=== PATIENT | male | born 1975 | race Caucasian/White ===

== ENCOUNTER 2020-03-15 17:17 | Emergency (ER) | payer SELFPAY ==
[~2020-03-15] VITALS: Ht 180.3 cm; Wt 127.2 kg
--- NOTE | 2020-03-15 17:17 | NUR ---
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 ALL BELONGINGS IN BAGS X3 (2 PT BELONGINGS BAGS & 1 BACKPACK) PLACED IN RM1 BIN IN LOCKER.
[2020-03-15 17:53] LABS: BASOPHILS # (AUTO) 0.05 x10^3/uL (0-0.1); BASOPHILS % (AUTO) 1 % (0-1); EOSINOPHILS # (AUTO) 0.11 x10^3/uL (0-0.4); EOSINOPHILS % (AUTO) 1 % (1-7); LYMPHOCYTES # (AUTO) 1.87 x10^3/uL (1-3.4); LYMPHOCYTES % (AUTO) 23 % (22-44); MD NO; MEAN CORPUSCULAR HEMOGLOBIN 31.2 pg (27.5-34.5); MEAN CORPUSCULAR HGB CONC 33.8 g/dL (33.2-36.2); MEAN CORPUSCULAR VOLUME 92.2 fL (81-97); MEAN PLATELET VOLUME 7.7 fL (7.4-10.4); MONOCYTES # (AUTO) 0.66 x10^3/uL (0.2-0.8); MONOCYTES % (AUTO) 8 % (2-9); NEUTROPHILS % (AUTO) 66 % (42-75); PLATELET COUNT 255 x10^3/uL (130-400); RED BLOOD COUNT 5.11 x10^6/uL (4.38-5.82); RED CELL DISTRIBUTION WIDTH 13.4 % (9.4-14.8)
[2020-03-15 18:02] LABS: ALANINE AMINOTRANSFERASE 92 U/L (12-78); ALBUMIN 3.3 g/dL (3.4-5.0); ANION GAP 9 mmol/L (5-15); CALCIUM 8.1 mg/dL (8.5-10.1); CHLORIDE 109 mmol/L (98-107)
[2020-03-15 18:05] LABS: SALICYLATE LEVEL < 1.7 mg/dL (2.8-20.0)
[2020-03-15 18:13] LABS: ALKALINE PHOSPHATASE 89 U/L (45-117); BILIRUBIN,TOTAL 0.6 mg/dL (0.2-1.0); CREATININE 0.98 mg/dL (0.7-1.3)
[2020-03-15 18:14] LABS: AMPHETAMINE SCREEN, URINE Negative (Negative); BARBITURATE SCREEN, URINE Negative (Negative); BENZODIAZEPINE SCREEN, URINE Negative (Negative); CANNABINOID SCREEN, URINE Negative (Negative); COCAINE SCREEN, URINE Negative (Negative); METHADONE SCREEN, URINE Negative (Negative); OPIATE SCREEN, URINE Negative (Negative)
--- NOTE | 2020-03-15 18:29 | NUR ---
PT RESTING IN BED WITH EYES CLOSED. NO STATED NEEDS AT THIS TIME.
--- NOTE | 2020-03-15 18:50 | NUR ---
REPORT FROM RADHA ASSUMED CARE OF PT
--- NOTE | 2020-03-15 19:14 | NUR ---
SITTER AT DOORWAY ROOM SECURE
--- NOTE | 2020-03-15 19:57 | NUR ---
Patient is resting comfortably in bed. Vital Signs within normal limits.
--- NOTE | 2020-03-15 20:28 | NUR ---
BREATH ETOH 0.207 AT THIS TIME
--- NOTE | 2020-03-15 21:22 | NUR ---
Patient is resting comfortably in bed. Vital Signs within normal limits.
--- NOTE | 2020-03-15 23:18 | NUR ---
PT UP TO BR AT THIS TIME IN NAD
--- NOTE | 2020-03-16 00:50 | NUR ---
PT AWAKE A AND O, TELE PSYCH CALLED
--- NOTE | 2020-03-16 01:14 | NUR ---
Report received from MILAGROS Sands. This RN to assume care.
--- NOTE | 2020-03-16 02:31 | NUR ---
Patient sleeping in rney. Respirations even and unlabored. Awaiting telepsych at this time. Room secured, belongings in locked cabinet, sitter outside.
--- NOTE | 2020-03-16 03:55 | NUR ---
Patient sleeping in rney. Respirations even and unlabored. Room secured, belongings in locked cabinet, sitter outside.
--- NOTE | 2020-03-16 04:40 | NUR ---
Patient sleeping in rney. Respirations even and unlabored. Room secured, belongings in locked cabinet, sitter outside.
--- NOTE | 2020-03-16 05:29 | NUR ---
Patient spoke with telepsych earlier in the night; patient to be placed on a hold.
--- NOTE | 2020-03-16 05:29 | NUR ---
Meal tray ordered for breakfast and lunch.
--- NOTE | 2020-03-16 05:37 | NUR ---
Patient transferred to hospital bed.
--- NOTE | 2020-03-16 06:07 | NUR ---
Patient resting in hospital bed with no complaints. Respirations even and unlabored. Room secured, belongings in locked cabinet. Sitter outside.
--- NOTE | 2020-03-16 06:43 | NUR ---
RECEIVED REPORT FROM KAEL RN, PLAN OF CARE DISCUSSED
--- NOTE | 2020-03-16 06:44 | NUR ---
Report given to MILAGROS Ramsey. Care transferred.
--- NOTE | 2020-03-16 07:21 | NUR ---
PT AWAKE, STATES HE FEELS BETTER THAT HE IS SOBER. REQUESTING AM CARE. ORDERED MEAL. EXPLAINED PLAN OF CARE, ROOM SECURED. SITTER AT DOOR
[2020-03-16 07:22] VITALS: BP 135/80
--- NOTE | 2020-03-16 09:00 | NUR ---
PT UP TO SHOWER AND AM CARE, TOOTHBRUSH AND PASTE GIVEN, LINEN CHANGED. PT VERBALIZED NO OTHER NEEDS, SITTER AT DOOR, ROOM REMAINS SECURE
--- NOTE | 2020-03-16 09:51 | NUR ---
PT SLEEPING, RESP EVEN AND UNLABORED. SITTER AT DOOR, ROOM REMAINS SECURED
--- NOTE | 2020-03-16 10:57 | NUR ---
ORDERED MEAL. PT SLEEPING RESP EVEN AND UNLABORED. SITTER AT BS, ROOM REMAINS SECURED
--- NOTE | 2020-03-16 11:58 | NUR ---
PT WATCHING TV, ROOM REMAINS SECURED. SITTER AT DOOR
--- NOTE | 2020-03-16 12:27 | NUR ---
TASK RN, FIRST CONTACT WITH PT. Provided pt lunch tray. Pt sits up on hospital bed to eat. Pt appreciaitve. Room remains secured for SI/HI. Sitter in direct line of sight for observaiton. No other needs expressed at this time. No acute distress noticed at this time.
--- NOTE | 2020-03-16 13:20 | NUR ---
BREAK RN NOTE: PT SLEEPING ON HOSPITAL BED, RESPS EVEN AND UNLABORED. ROOM SECURE. SITTER MONITORING FROM HALLWAY FOR SAFETY.
--- NOTE | 2020-03-16 13:30 | NUR ---
REPORT RECEIVED FROM RAY LINARES.
--- NOTE | 2020-03-16 13:45 | NUR ---
ANASTASIYA BASSETT AT BEDSIDE.
--- NOTE | 2020-03-16 13:52 | NUR ---
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
--- NOTE | 2020-03-16 14:15 | NUR ---
2 WHITE BELONGINGS BAGS AND 1 [place]NN DUFFLE BAG RETURNED TO PT.
--- NOTE | 2020-03-16 14:32 | NUR ---
PT VERBALIZED UNDERSTANDING OF DC INSTRUCTIONS, PROVIDED TAXI VOUCHER TO [facility]. PT AMBULATED TO DC DESK W/ A STEADY GAIT.
== END 2020-03-16 14:41 | disposition home or self-care (01) ==
LOC: ED 03-16 00:48
DX: R45.851 Suicidal ideations (principal); F10.220 Alcohol dependence with intoxication, uncomplicated; F32.9 Major depressive disorder, single episode, unspecified; F17.200 Nicotine dependence, unspecified, uncomplicated; Y90.0 Blood alcohol level of less than 20 mg/100 ml
CPT/HCPCS: 36415; 80053; 80307; 84443; 85025; 99284

== ENCOUNTER 2020-04-27 15:10 | Emergency (ER) | payer BC, MEDICAID ==
[~2020-04-27] VITALS: Ht 180.3 cm; Wt 116.2 kg
[2020-04-27 15:15] VITALS: BP 152/91
--- NOTE | 2020-04-27 15:29 | NUR ---
Assumed care of patient. C/O right sided dental pain. NAD. Will continue to monitor.
[2020-04-27 16:04] LABS: BASOPHILS # (AUTO) 0.09 x10^3/uL (0-0.1); BASOPHILS % (AUTO) 1 % (0-1); EOSINOPHILS # (AUTO) 0.04 x10^3/uL (0-0.4); EOSINOPHILS % (AUTO) 0 % (1-7); LYMPHOCYTES # (AUTO) 1.92 x10^3/uL (1-3.4); LYMPHOCYTES % (AUTO) 18 % (22-44); MD NO; MEAN CORPUSCULAR HEMOGLOBIN 31.1 pg (27.5-34.5); MEAN CORPUSCULAR HGB CONC 34.3 g/dL (33.2-36.2); MEAN CORPUSCULAR VOLUME 90.5 fL (81-97); MONOCYTES # (AUTO) 0.46 x10^3/uL (0.2-0.8); MONOCYTES % (AUTO) 4 % (2-9); NEUTROPHILS # (AUTO) 8.15 x10^3/uL (1.8-6.8); NEUTROPHILS % (AUTO) 77 % (42-75); PLATELET COUNT 290 x10^3/uL (130-400); RED BLOOD COUNT 5.52 x10^6/uL (4.38-5.82); RED CELL DISTRIBUTION WIDTH 12.3 % (9.4-14.8)
[2020-04-27 16:16] LABS: ALANINE AMINOTRANSFERASE 75 U/L (12-78); ALBUMIN 3.8 g/dL (3.4-5.0); ANION GAP 6 mmol/L (5-15); CALCIUM 8.8 mg/dL (8.5-10.1); CHLORIDE 112 mmol/L (98-107); CREATININE 1.04 mg/dL (0.7-1.3)
[2020-04-27 16:18] LABS: ALKALINE PHOSPHATASE 53 U/L (45-117); BILIRUBIN,TOTAL 0.8 mg/dL (0.2-1.0); TOTAL PROTEIN 6.9 g/dL (6.4-8.2)
[2020-04-27] MEDS ORDERED: OXYcodone 5 MG/5 ML ORAL.SOL UDC PO STA (16:36)
[2020-04-27] MEDS ORDERED: OXYcodone IR 5MG TABLET ONE (16:45)
--- NOTE | 2020-04-27 16:50 | NUR ---
Medicated per eMAR.
--- NOTE | 2020-04-27 17:08 | NUR ---
Patient/Caregiver given discharge instructions and they have confirmed that they understand the instructions. Patient ambulatory with steady gait.
== END 2020-04-27 17:09 | disposition home or self-care (01) ==
LOC: ED 16:28
DX: K08.89 Other specified disorders of teeth and supporting structures (principal); R00.0 Tachycardia, unspecified; F17.210 Nicotine dependence, cigarettes, uncomplicated
CPT/HCPCS: 36415; 80053; 85025; 93005; 99284; 99406

== ENCOUNTER 2020-05-20 00:28 | Emergency (ER) | payer MEDICAID ==
[~2020-05-20] VITALS: Ht 180.3 cm; Wt 125.0 kg
[2020-05-20 00:32] VITALS: BP 114/79
--- NOTE | 2020-05-20 00:46 | NUR ---
PATTY GARRIDO FROM [facility] FOR ETOH ADMITS TO DRINKING OVER 1PT VODKA, SLURRED SPEACH, UNSTEADY GATE. NO TRAUMA, PT AGGITATED, SLIGHTLY COMBATIVE. VSS
[2020-05-20 01:01] LABS: BASOPHILS # (AUTO) 0.12 x10^3/uL (0-0.1); BASOPHILS % (AUTO) 2 % (0-1); EOSINOPHILS # (AUTO) 0.06 x10^3/uL (0-0.4); EOSINOPHILS % (AUTO) 1 % (1-7); LYMPHOCYTES # (AUTO) 2.75 x10^3/uL (1-3.4); LYMPHOCYTES % (AUTO) 32 % (22-44); MD NO; MEAN CORPUSCULAR HEMOGLOBIN 29.9 pg (27.5-34.5); MEAN CORPUSCULAR HGB CONC 32.6 g/dL (33.2-36.2); MEAN CORPUSCULAR VOLUME 91.8 fL (81-97); MEAN PLATELET VOLUME 7.9 fL (7.4-10.4); MONOCYTES % (AUTO) 7 % (2-9); NEUTROPHILS # (AUTO) 4.95 x10^3/uL (1.8-6.8); NEUTROPHILS % (AUTO) 58 % (42-75); PLATELET COUNT 337 x10^3/uL (130-400); RED BLOOD COUNT 5.23 x10^6/uL (4.38-5.82); RED CELL DISTRIBUTION WIDTH 12.3 % (9.4-14.8)
--- NOTE | 2020-05-20 01:05 | NUR ---
LABS DRAWN AND SENT. PT SLEEPING, RAILS UP, ROOM SECURED.
[2020-05-20 01:13] LABS: ALANINE AMINOTRANSFERASE 183 U/L (12-78); ALBUMIN 3.4 g/dL (3.4-5.0); ANION GAP 7 mmol/L (5-15); CALCIUM 8.4 mg/dL (8.5-10.1); CHLORIDE 111 mmol/L (98-107); CREATININE 0.89 mg/dL (0.7-1.3)
[2020-05-20 01:21] LABS: ALKALINE PHOSPHATASE 67 U/L (45-117); BILIRUBIN,TOTAL 0.4 mg/dL (0.2-1.0); TOTAL PROTEIN 6.9 g/dL (6.4-8.2)
[2020-05-20 01:27] LABS: SALICYLATE LEVEL < 1.7 mg/dL (2.8-20.0)
--- NOTE | 2020-05-20 02:49 | NUR ---
PT PROVIDED URINE SAMPLE, SENT TO LAB. UNSTEADY GAIT, IS COOPERATIVE AT THIS TIME. WILL CONTINUE TO MONITOR.
[2020-05-20 03:06] LABS: AMPHETAMINE SCREEN, URINE Negative (Negative); BARBITURATE SCREEN, URINE Negative (Negative); BENZODIAZEPINE SCREEN, URINE Negative (Negative); CANNABINOID SCREEN, URINE Negative (Negative); COCAINE SCREEN, URINE Negative (Negative); METHADONE SCREEN, URINE Negative (Negative); OPIATE SCREEN, URINE Negative (Negative)
--- NOTE | 2020-05-20 03:57 | NUR ---
PT SLEEPING, RR EQUAL AND UNLABORED. SIDE RAILS UP, CALL LOPEZ IN REACH. WILL CONTINUE TO MONITOR.
--- NOTE | 2020-05-20 06:18 | NUR ---
SLEEPING, RR EQUAL AND UNLABORED. ATTEMPT TO GET PT UP FOR ROAD TEST, STILL UNSTEADY.
--- NOTE | 2020-05-20 06:53 | NUR ---
REPORT TO NÉSTOR LINARES
--- NOTE | 2020-05-20 06:56 | NUR ---
REPORT FROM GALLO
--- NOTE | 2020-05-20 08:17 | NUR ---
PT AMBULATED TO BATHROOM. GIVEN MEAL TRAY.
--- NOTE | 2020-05-20 09:32 | NUR ---
BREATHALYZED .179. PT DENIES SI. THOUGHTS OF WANTING TO HARMSELF OR OTHERS. WANTS TO SLEEP
--- NOTE | 2020-05-20 10:06 | NUR ---
Patient/Caregiver given discharge instructions and they have confirmed that they understand the instructions. Patient ambulatory with steady gait.
== END 2020-05-20 10:15 | disposition home or self-care (01) ==
LOC: ED 05:27
DX: F32.0 Major depressive disorder, single episode, mild (principal); F10.120 Alcohol abuse with intoxication, uncomplicated; F17.210 Nicotine dependence, cigarettes, uncomplicated; R41.82 Altered mental status, unspecified; Y90.0 Blood alcohol level of less than 20 mg/100 ml
CPT/HCPCS: 36415; 80053; 80307; 85025; 99283; 99406

== ENCOUNTER 2020-08-17 17:53 | Emergency (ER) | payer MEDICAID ==
[~2020-08-17] VITALS: Ht 180.3 cm; Wt 110.0 kg
[2020-08-17 18:30] LABS: BASOPHILS % (AUTO) 1 % (0-1); EOSINOPHILS % (AUTO) 1 % (1-7); LYMPHOCYTES % (AUTO) 18 % (22-44); MEAN CORPUSCULAR HEMOGLOBIN 30.6 pg (27.5-34.5); MEAN CORPUSCULAR HGB CONC 34.4 g/dL (33.2-36.2); MEAN PLATELET VOLUME 7.9 fL (7.4-10.4); MONOCYTES % (AUTO) 6 % (2-9); NEUTROPHILS % (AUTO) 74 % (42-75); PLATELET COUNT 379 x10^3/uL (130-400); RED BLOOD COUNT 5.64 x10^6/uL (4.38-5.82); RED CELL DISTRIBUTION WIDTH 12.8 % (9.4-14.8)
[2020-08-17 18:41] LABS: ALANINE AMINOTRANSFERASE 93 U/L (12-78); ALBUMIN 3.9 g/dL (3.4-5.0); ANION GAP 9 mmol/L (5-15); CALCIUM 8.9 mg/dL (8.5-10.1); CHLORIDE 108 mmol/L (98-107); CREATININE 0.94 mg/dL (0.7-1.3)
[2020-08-17 18:42] LABS: SALICYLATE LEVEL < 1.7 mg/dL (2.8-20.0)
[2020-08-17 18:44] LABS: ALKALINE PHOSPHATASE 69 U/L (45-117); BILIRUBIN,TOTAL 0.5 mg/dL (0.2-1.0); TOTAL PROTEIN 7.9 g/dL (6.4-8.2)
[2020-08-17 19:08] LABS: MD SCAN
--- NOTE | 2020-08-17 19:58 | NUR ---
PT AMBULATORY TO ROOM AT THIS TIME WITH STEADY GAIT.
--- NOTE | 2020-08-17 20:24 | NUR ---
PT STATES HE WAS D/C'D FROM [facility] TODAY, "I WAS PROBABLY SUPPOSED TO TAKE MEDS." STATE'S HE WAS D/C'D WITH MEDS.
--- NOTE | 2020-08-17 20:33 | NUR ---
ERP AT BEDSIDE.
[2020-08-17 20:41] VITALS: BP 130/82
[2020-08-17 20:42] LABS: MICROSCOPIC INDICATED
[2020-08-17 20:44] LABS: AMPHETAMINE SCREEN, URINE Negative (Negative); BARBITURATE SCREEN, URINE Negative (Negative); BENZODIAZEPINE SCREEN, URINE Negative (Negative); CANNABINOID SCREEN, URINE Negative (Negative); COCAINE SCREEN, URINE Negative (Negative); METHADONE SCREEN, URINE Negative (Negative); OPIATE SCREEN, URINE Negative (Negative)
== END 2020-08-17 20:44 | disposition home or self-care (01) ==
LOC: ED 18:23
DX: F10.220 Alcohol dependence with intoxication, uncomplicated (principal); F32.9 Major depressive disorder, single episode, unspecified; F17.210 Nicotine dependence, cigarettes, uncomplicated; Z59.0 Homelessness; Z72.9 Problem related to lifestyle, unspecified; Y90.0 Blood alcohol level of less than 20 mg/100 ml
CPT/HCPCS: 36415; 80053; 80299; 80307; 80320; 80329; 81001; 85025; 87086; 99283; 99406; G0480

== ENCOUNTER 2021-02-27 14:48 | Emergency (ER) | payer MEDICAID ==
[~2021-02-27] VITALS: Ht 177.8 cm; Wt 110.0 kg
[2021-02-27 15:22] VITALS: BP 109/79
--- NOTE | 2021-02-27 15:30 | NUR ---
PT AMBULATORY TO ROOM FROM TRIAGE, NADN/VSS. PT C/O BOTTOM R-MOLAR PAIN. PT STATES TOOTH HAS BEEN "CRACKED" FOR 1YR. PAIN HAS WORSENED WITH FOUL TASTING & ODOR
--- NOTE | 2021-02-27 16:07 | NUR ---
PA AT BS
--- NOTE | 2021-02-27 16:22 | NUR ---
PatienT given discharge instructions and RX, they have confirmed that they understand the instructions. Patient ambulatory with steady gait.
== END 2021-02-27 16:24 | disposition home or self-care (01) ==
LOC: ED 16:20
DX: K02.9 Dental caries, unspecified (principal); K08.89 Other specified disorders of teeth and supporting structures
CPT/HCPCS: 99283

== ENCOUNTER 2021-04-02 17:55 | Emergency (ER) | payer MEDICAID, OTHER ==
[~2021-04-02] VITALS: Ht 180.3 cm; Wt 114.3 kg
[2021-04-02 18:11] VITALS: BP 147/95
--- NOTE | 2021-04-02 18:25 | NUR ---
FIRST CONTACT: COUGH, SOB X 2 MONTHS (BREATHING IN METAL DUST AT WORK). HAS BEEN TESTED POSITIVE X 2 COVID-19 07/2020. NO VACCINATION FOR COVID. PT WITH STEADY GAIT TO ROOM. ATTACHED TO MONITORS. VSS. NADN. AWAITING ORDERS
--- NOTE | 2021-04-02 18:45 | NUR ---
REPORT TO EDGAR
--- NOTE | 2021-04-02 19:01 | NUR ---
RECEIVED REPORT ON PT, PT RESTING COMFORTABLY IN ROOM, ON O2 SAT PROBE. NO ORDERS RECEIVED AT THIS TIME FOR TREATMENT OF PT.
--- NOTE | 2021-04-02 19:17 | NUR ---
SURFACE GRINDER TO ROOM FOR CXRY.
--- NOTE | 2021-04-02 19:49 | NUR ---
MD TO BEDSIDE TO UPDATE PT ON RESULTS, AND PT TO BE D/C'D
--- NOTE | 2021-04-02 20:37 | NUR ---
F/U AND D/C INSTRUCTIONS GIVEN TO PT WITH PRESCRIPTIONS AND HE V/U.
== END 2021-04-02 20:38 | disposition home or self-care (01) ==
LOC: ED 18:47
DX: R07.89 Other chest pain (principal); J20.9 Acute bronchitis, unspecified; R94.31 Abnormal electrocardiogram [ECG] [EKG]; F17.200 Nicotine dependence, unspecified, uncomplicated
CPT/HCPCS: 71045; 93005; 99283